=== PATIENT | male | born 1980 | race Two or more races ===

== ENCOUNTER 2018-01-09 14:57 | Emergency (ER) | payer SELFPAY ==
--- NOTE | 2018-01-09 16:49 | ER Document Report ---
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 He states that this lasted for several minutes. He denies any pain. But he did have some jaw numbness. No previous history of similar problems. He denies past medical history. He takes no daily medicines. No previous surgeries. TRAVEL OUTSIDE OF THE [place] IN LAST 30 DAYS: No - Related Data Allergies/Adverse Reactions: No Known Allergies Allergy (Verified 01/09/18 16:35) Past Medical History - Social History Chew tobacco use (# tins/day): No Frequency of alcohol use: 4-8 beer daily Drug Abuse: None Renal/ Medical History: Denies: Hx Peritoneal Dialysis Physical Exam - Vital signs Vitals: Temp Pulse Resp BP Pulse Ox 98.3 F 94 14 158/86 H 96 01/09/18 15:25 01/09/18 15:25 01/09/18 15:25 01/09/18 15:25 01/09/18 15:25 Course - Vital Signs Vital signs: Temp Pulse Resp BP Pulse Ox 98.3 F 94 14 158/86 H 96 01/09/18 15:25 01/09/18 15:25 01/09/18 15:25 01/09/18 15:25 01/09/18 15:25
[2018-01-09 19:02] LABS: ABSOLUTE BASOPHILS # (AUTO) 0.1 10^3/uL (0.0-0.2); ABSOLUTE LYMPHOCYTES (AUTO) 0.8 10^3/uL (0.5-4.7); ABSOLUTE MONOCYTES (AUTO) 0.7 10^3/uL (0.1-1.4); ABSOLUTE NEUT (AUTO) 3.8 10^3/uL (1.7-8.2); BASOPHILS % (AUTO) 1.1 % (0-2); EOSINOPHILS % (AUTO) 0.3 % (0-6); HEMATOCRIT 39.1 % (37.9-51.0); HEMOGLOBIN 11.4 g/dL (13.5-17.0); MEAN CORPUSCULAR HEMOGLOBIN 18.2 pg (27.0-33.4); MEAN CORPUSCULAR HGB CONC 29.2 g/dL (32.0-36.0); MONOCYTES % (AUTO) 12.9 % (3-13); PLATELET COUNT 211 10^3/uL (150-450); RED BLOOD COUNT 6.28 10^6/uL (4.35-5.55); RED CELL DISTRIBUTION WIDTH 19.3 % (11.5-14.0); SEGMENTED NEUTROPHILS % (AUTO) 70.7 % (42-78); TOTAL CELLS COUNTED % (AUTO) 100 %; WHITE BLOOD COUNT 5.4 10^3/uL (4.0-10.5)
[2018-01-09 19:13] LABS: ALANINE AMINOTRANSFERASE 179 U/L (21-72); ALBUMIN 4.9 g/dL (3.5-5.0); ALKALINE PHOSPHATASE 78 U/L (38-126); ANION GAP 14 (5-19); ASPARTATE AMINO TRANSFERASE 121 U/L (17-59); BILIRUBIN,DIRECT 0.4 mg/dL (0.0-0.4); BILIRUBIN,TOTAL 0.7 mg/dL (0.2-1.3); BLOOD UREA NITROGEN 8 mg/dL (7-20); CALCIUM 10.2 mg/dL (8.4-10.2); CARBON DIOXIDE 29 mmol/L (22-30); CHLORIDE 99 mmol/L (98-107); GLUCOSE 117 mg/dL (75-110); POTASSIUM 4.2 mmol/L (3.6-5.0); SODIUM 141.6 mmol/L (137-145); TOTAL PROTEIN 9.2 g/dL (6.3-8.2)
[2018-01-09 19:15] LABS: MEAN CORPUSCULAR VOLUME 62 fl (80-97)
[2018-01-09 19:28] LABS: ANISOCYTOSIS 2+; PLATELET COMMENT ADEQUATE
--- NOTE | 2018-01-09 19:35 | EKG REPORT ---
SEVERITY:- NORMAL ECG - SINUS RHYTHM : Confirmed by: Nico Alejandra MD 09-Jan-2018 19:35:15
--- NOTE | 2018-01-09 20:53 | ER Document Report ---
ED General - General Chief Complaint: Dizziness Stated Complaint: DIZZINESS Time Seen by Provider: 01/09/18 16:47 Mode of Arrival: Ambulatory Information source: Patient Notes: This is a 37-year-old man with a family history of diabetes who presents to the emergency room after an episode of jitteriness, shakiness, dry mouth, lightheaded and he said he felt too weak to talk. The episode lasted approximately 3 hours. The patient states that the episode started 2 PM today. 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 He does state he had coffee at 11 AM but otherwise has not eaten since last night. He states he is back to baseline now. TRAVEL OUTSIDE OF THE [place] IN LAST 30 DAYS: No - HPI Onset: Just prior to arrival Onset/Duration: Gradual Quality of pain: No pain Severity: None Pain Level: Denies Associated symptoms: denies: Chest pain, Fever, Shortness of breath Exacerbated by: Denies Relieved by: Denies Similar symptoms previously: No Recently seen / treated by doctor: No - Related Data Allergies/Adverse Reactions: No Known Allergies Allergy (Verified 01/09/18 16:35) Past Medical History - General Information source: Patient - Social History Smoking Status: Never Smoker Cigarette use (# per day): No Chew tobacco use (# tins/day): No Frequency of alcohol use: 4-8 beer daily Drug Abuse: None Lives with: Spouse/Significant other Family History: None Patient has suicidal ideation: No Patient has homicidal ideation: No - Medical History Medical History: Negative Renal/ Medical History: Denies: Hx Peritoneal Dialysis Surgical Hx: Negative Review of Systems - Review of Systems Constitutional: denies: Chills, Fever EENT: No symptoms reported Cardiovascular: No symptoms reported Respiratory: No symptoms reported Gastrointestinal: See HPI Genitourinary: No symptoms reported Male Genitourinary: No symptoms reported Musculoskeletal: No symptoms reported Skin: No symptoms reported Hematologic/Lymphatic: No symptoms reported Neurological/Psychological: No symptoms reported Physical Exam - Vital signs Vitals: Temp Pulse Resp BP Pulse Ox 98.3 F 94 14 158/86 H 96 01/09/18 15:25 01/09/18 15:25 01/09/18 15:25 01/09/18 15:25 01/09/18 15:25 Notes: Physical exam: GENERAL: 37-year-old man, alert and oriented 3, no acute distress HEAD: Atraumatic, normocephalic. EYES: Pupils equal round and reactive to light, extraocular movements intact, sclera anicteric, conjunctiva are normal. ENT: TMs normal, nares patent, oropharynx clear without exudates. Moist mucous membranes. NECK: Normal range of motion, supple without obvious mass or JVD. LUNGS: Breath sounds clear to auscultation bilaterally and equal. No wheezes rales or rhonchi. HEART: Regular rate and rhythm without murmurs, rubs or gallops. ABDOMEN: Soft, normoactive bowel sounds. No tenderness to palpation. No guarding, no rebound. No masses appreciated. EXTREMITIES: Normal range of motion, no pitting or edema. No clubbing or cyanosis. NEUROLOGICAL: Cranial nerves II through XII grossly intact. Out of 5/5, sensory grossly intact, gait normal, cerebellar (finger to nose grossly intact) . Normal speech, moving all extremities. PSYCH: Normal mood, normal affect. SKIN: Warm, Dry, normal turgor, no rashes or lesions noted. Course - Vital Signs Vital signs: Temp Pulse Resp BP Pulse Ox 98.5 F 79 18 161/91 H 95 01/09/18 21:01 01/09/18 21:01 01/09/18 21:01 01/09/18 21:01 01/09/18 21:01 - Laboratory Result Diagrams: 01/09/18 18:30 01/09/18 18:30 Laboratory results interpreted by me: 01/09/18 01/09/18 18:30 18:30 RBC 6.28 H Hgb 11.4 L MCV 62 L MCH 18.2 L MCHC 29.2 L RDW 19.3 H Glucose 117 H AST 121 H ALT 179 H Total Protein 9.2 H - EKG Interpretation by Sc Rate: Normal Rhythm: NSR - EKG shows normal sinus rhythm with a ventricular rate of 84, no acute ST-T wave changes Discharge - Discharge Clinical Impression: Shakiness, Borderline diabetes Condition: Stable Disposition: HOME, SELF-CARE Additional Instructions: Note: As we discussed, your blood tests showed mild elevation in the blood sugar. Given that you have not eaten since last night, this may be early diabetes. Often times, and or early diabetes, you can get episodes of low blood sugar which would account for the symptoms that you had today. I would like you to follow-up with a physician. [facility] given [facility] the number of [facility] (this is a free clinic affiliated with the hospital). You could also follow-up with the health department. Finally, I have given you the number of a [place]ian-speaking primary care physician in the community. When you are evaluated, bring a copy of today's labs with you. [facility] - Follow up as needed [facility] [Provider Group] - Follow up as needed (This is the number the free clinic affiliated with [facility] HENNY SHETH MD [COMMUNITY BASED STAFF] - Follow up as needed (This is the number of a primary care doctor's office)
[2018-01-09 21:02] VITALS: BP 161/91
[2018-01-11 07:39] LABS: PATH REVIEW PATHOLOGIST REVIEWED
== END 2018-01-09 21:00 | disposition home or self-care (01) ==
LOC: ER 14:57
DX: R73.03 Prediabetes (principal); R42 Dizziness and giddiness; R53.1 Weakness; R68.2 Dry mouth, unspecified; R29.818 Other symptoms and signs involving the nervous system
CPT/HCPCS: 36415; 80053; 84484; 85025; 93005; 93010; 99284